=== PATIENT | female | born 1970 | race Caucasian/White ===

== ENCOUNTER 2018-04-06 07:17 | Inpatient (IN) | payer BC ==
[2018-04-06] MEDS ORDERED: NACL 0.9% 3 ML SYG IV (08:30)
[2018-04-06] MEDS ORDERED: ONDANSETRON 4 MG INJ IV (08:30)
[2018-04-06] MEDS ORDERED: VANCOMYCIN IV PER PHARMACY XX ×2 (09:30→12:00)
[2018-04-06] MEDS ORDERED: ACETAMINOPHEN 325 MG TAB PO (09:30)
[2018-04-06] MEDS: ENOXAPARIN 40 MG/0.4 ML SYG SC (09:30)
[2018-04-06] MEDS: LEVOFLOXACIN 500MG/D5W (PMX) 100 ML IVPB (09:30)
[2018-04-06] MEDS: SOD CHLORIDE 0.9% 1,000 ML IV ×2 (10:32→20:00)
[2018-04-06 10:55] LABS: ADD MAN DIFF? NO
[2018-04-06 10:59] LABS: BASOPHILS % 0.5 % (0.0-2.0); EOSINOPHILS # 0.2 10^3/ul (0.0-0.5); EOSINOPHILS % 1.8 % (0.0-7.0); HEMATOCRIT 35.8 % (37.0-47.0); LYMPHOCYTES # 1.4 10^3/ul (0.8-2.9); LYMPHOCYTES % 17.1 % (15.0-51.0); MEAN CORPUSCULAR HEMOGLOBIN 32.4 pg (29.0-33.0); MEAN CORPUSCULAR HGB CONC 33.5 g/dl (32.0-37.0); MEAN CORPUSCULAR VOLUME 96.8 fl (82.0-101.0); MEAN PLATELET VOLUME 11.9 fl (7.4-10.4); MONOCYTE # 0.8 10^3/ul (0.3-0.9); MONOCYTES % 10.2 % (0.0-11.0); NEUTROPHIL # 5.8 10^3/ul (1.6-7.5); NEUTROPHILS % 70.2 % (39.0-77.0); PLATELET COUNT 230 10^3/UL (140-415); RED CELL DISTRIBUTION WIDTH 12.7 % (11.5-14.5)
[2018-04-06 10:59] LABS: WHITE BLOOD COUNT 8.2 10^3/ul (4.8-10.8)
[2018-04-06 11:12] LABS: LACTIC ACID 0.7 mmol/L (0.5-2.0)
[2018-04-06 11:23] LABS: ALANINE AMINOTRANSFERASE 20 IU/L (13-69); ALBUMIN 3.7 g/dl (3.3-4.9); ALBUMIN/GLOBULIN RATIO 1.15; ALKALINE PHOSPHATASE 61 IU/L (42-121); ANION GAP 11 (8-16); ASPARTATE AMINO TRANSFERASE 27 IU/L (15-46); BILIRUBIN,INDIRECT 0.6 mg/dl (0-1.1); BILIRUBIN,TOTAL 0.6 mg/dl (0.2-1.3); BLOOD UREA NITROGEN 10 mg/dl (7-20); CALCIUM 8.6 mg/dl (8.4-10.2); CARBON DIOXIDE 28 mmol/L (21-31); CHLORIDE 106 mmol/L (97-110); CREATININE 0.43 mg/dl (0.44-1.00); GLUCOSE 101 mg/dl (70-220); MAGNESIUM 1.9 mg/dl (1.7-2.5); PHOSPHORUS 4.1 mg/dl (2.5-4.9); POTASSIUM 4.2 mmol/L (3.5-5.1); SODIUM 141 mmol/L (135-144); TOTAL PROTEIN 6.9 g/dl (6.1-8.1)
[2018-04-06 11:29] LABS: HEMOGLOBIN A1C 5.1 % (0-5.9)
[2018-04-06 11:36] LABS: ADD UMIC YES; UR ASCORBIC ACID NEGATIVE (NEGATIVE); UR BACTERIA FEW /HPF (NONE SEEN); UR BILIRUBIN (Dip) NEGATIVE (NEGATIVE); UR BLOOD (Dip) 1+ mg/dL (NEGATIVE); UR CLARITY SLIGHTLY CLOUDY (CLEAR); UR COLOR YELLOW (YELLOW); UR GLUCOSE (Dip) NEGATIVE (NEGATIVE); UR KETONES (Dip) NEGATIVE (NEGATIVE); UR LEUKOCYTE ESTERASE (Dip) NEGATIVE Leu/ul (NEGATIVE); UR NITRITE (Dip) NEGATIVE (NEGATIVE); UR RBC 1 /HPF (0-5); UR SPECIFIC GRAVITY (Dip) 1.013 (1.003-1.030); UR SQUAMOUS EPITHELIAL CELL FEW /HPF (FEW); UR TOTAL PROTEIN (Dip) NEGATIVE (NEGATIVE); UR UROBILINOGEN (Dip) NEGATIVE (NEGATIVE); UR WBC 2 /HPF (0-5)
[2018-04-06] MEDS: morphine 2 MG INJ IV (12:33)
[2018-04-06 13:01] LABS: AMPHETAMINE/METHAMPHETAMINE Negative (NEGATIVE)
[2018-04-06 13:18] LABS: BARBITURATES Negative (NEGATIVE); BENZODIAZEPINES Negative (NEGATIVE); CANNABINOIDS Negative (NEGATIVE); COCAINE Negative (NEGATIVE); OPIATES Negative (NEGATIVE)
[2018-04-06] MEDS: VANCOMYCIN 1.25 GM in SOD CHLORIDE 0.9% 250 ML IVPB (13:22)
[2018-04-06 14:36] LABS: FREE T4 (FREE THYROXINE) 0.94 ng/dl (0.64-1.79)
[2018-04-06] MEDS: SOD CHLORIDE 0.9% 100 ML (15:49)
[2018-04-06] MEDS: IOHEXOL 300MG/ML 150 ML BTL (15:51)
[2018-04-06 16:33] LABS: CREATINE KINASE 30 IU/L (23-200)
[2018-04-06] MEDS: HYDROCODONE/APAP (5/325) TAB PO (17:48)
[2018-04-07] MEDS: SOD CHLORIDE 0.9% 1,000 ML IV ×2 (00:25→06:00)
[2018-04-07] MEDS: HYDROCODONE/APAP (5/325) TAB PO ×2 (00:25→22:27)
[2018-04-07] MEDS: VANCOMYCIN 1 GM 250 ML IVPB ×2 (00:32→12:49)
[2018-04-07] MEDS: morphine 2 MG INJ IV ×2 (04:25→14:11)
[2018-04-07 06:21] LABS: ADD MAN DIFF? NO
[2018-04-07 06:42] LABS: BASOPHILS % 0.6 % (0.0-2.0); EOSINOPHILS # 0.2 10^3/ul (0.0-0.5); EOSINOPHILS % 2.6 % (0.0-7.0); HEMATOCRIT 32.8 % (37.0-47.0); HEMOGLOBIN 10.8 g/dl (12.0-16.0); LYMPHOCYTES % 29.4 % (15.0-51.0); MEAN CORPUSCULAR HEMOGLOBIN 32.5 pg (29.0-33.0); MEAN CORPUSCULAR HGB CONC 32.9 g/dl (32.0-37.0); MEAN CORPUSCULAR VOLUME 98.8 fl (82.0-101.0); MEAN PLATELET VOLUME 12.2 fl (7.4-10.4); MONOCYTE # 0.8 10^3/ul (0.3-0.9); MONOCYTES % 11.4 % (0.0-11.0); NEUTROPHIL # 3.8 10^3/ul (1.6-7.5); NEUTROPHILS % 55.7 % (39.0-77.0); PLATELET COUNT 212 10^3/UL (140-415); RED BLOOD COUNT 3.32 10^6/ul (4.20-5.40); RED CELL DISTRIBUTION WIDTH 12.8 % (11.5-14.5)
[2018-04-07 06:42] LABS: WHITE BLOOD COUNT 6.8 10^3/ul (4.8-10.8)
[2018-04-07 06:58] LABS: CHOL/HDL RATIO 2.3 RATIO; HDL CHOLESTEROL 52 mg/dl (34-88); LDL CHOLESTEROL,CALCULATED 59 mg/dl; TRIGLYCERIDES 59 mg/dl (0-149)
[2018-04-07 06:58] LABS: CHOLESTEROL 123 mg/dl (100-200)
[2018-04-07 07:04] LABS: ANION GAP 7 (8-16); BLOOD UREA NITROGEN 6 mg/dl (7-20); CALCIUM 8.3 mg/dl (8.4-10.2); CARBON DIOXIDE 31 mmol/L (21-31); CHLORIDE 110 mmol/L (97-110); CREATININE 0.44 mg/dl (0.44-1.00); GLUCOSE 99 mg/dl (70-220); PHOSPHORUS 3.6 mg/dl (2.5-4.9); POTASSIUM 4.8 mmol/L (3.5-5.1); SODIUM 143 mmol/L (135-144)
[2018-04-07] MEDS: ENOXAPARIN 40 MG/0.4 ML SYG SC (09:52)
[2018-04-07] MEDS ORDERED: morphine LIQ (10 MG/5 ML) CUP PO (16:00)
[2018-04-08 01:53] LABS: VANCOMYCIN,TROUGH < 5.0 ug/ml (10.0-20.0)
[2018-04-08] MEDS: VANCOMYCIN 1 GM 250 ML IVPB ×3 (01:57→17:21)
[2018-04-08] MEDS: ZOLPIDEM 5 MG TAB PO (02:46)
[2018-04-08 05:36] LABS: ADD MAN DIFF? NO
[2018-04-08 05:40] LABS: WHITE BLOOD COUNT 7.2 10^3/ul (4.8-10.8)
[2018-04-08 05:40] LABS: BASOPHILS % 0.6 % (0.0-2.0); EOSINOPHILS # 0.2 10^3/ul (0.0-0.5); EOSINOPHILS % 2.7 % (0.0-7.0); HEMATOCRIT 34.1 % (37.0-47.0); HEMOGLOBIN 11.3 g/dl (12.0-16.0); LYMPHOCYTES # 2.1 10^3/ul (0.8-2.9); LYMPHOCYTES % 28.6 % (15.0-51.0); MEAN CORPUSCULAR HEMOGLOBIN 32.8 pg (29.0-33.0); MEAN CORPUSCULAR HGB CONC 33.1 g/dl (32.0-37.0); MEAN CORPUSCULAR VOLUME 98.8 fl (82.0-101.0); MEAN PLATELET VOLUME 11.5 fl (7.4-10.4); MONOCYTE # 0.7 10^3/ul (0.3-0.9); MONOCYTES % 10.1 % (0.0-11.0); NEUTROPHIL # 4.1 10^3/ul (1.6-7.5); NEUTROPHILS % 57.7 % (39.0-77.0); PLATELET COUNT 231 10^3/UL (140-415); RED BLOOD COUNT 3.45 10^6/ul (4.20-5.40); RED CELL DISTRIBUTION WIDTH 12.6 % (11.5-14.5)
[2018-04-08 06:04] LABS: MAGNESIUM 2.1 mg/dl (1.7-2.5)
[2018-04-08 06:05] LABS: ANION GAP 10 (8-16); BLOOD UREA NITROGEN 7 mg/dl (7-20); CALCIUM 8.4 mg/dl (8.4-10.2); CARBON DIOXIDE 30 mmol/L (21-31); CHLORIDE 107 mmol/L (97-110); CREATININE 0.46 mg/dl (0.44-1.00); GLUCOSE 100 mg/dl (70-220); POTASSIUM 4.4 mmol/L (3.5-5.1); SODIUM 143 mmol/L (135-144)
[2018-04-08] MEDS: HYDROCODONE/APAP (5/325) TAB PO ×3 (09:03→22:40)
[2018-04-08] MEDS: ENOXAPARIN 40 MG/0.4 ML SYG SC (09:06)
[2018-04-09] MEDS: VANCOMYCIN 1 GM 250 ML IVPB ×2 (01:57→11:32)
[2018-04-09] MEDS: ENOXAPARIN 40 MG/0.4 ML SYG SC (09:16)
[2018-04-09 11:10] LABS: VANCOMYCIN,TROUGH 8.9 ug/ml (10.0-20.0)
[2018-04-09] MEDS: HYDROCODONE/APAP (5/325) TAB PO ×2 (14:25→23:36)
[2018-04-09] MEDS: VANCOMYCIN 1.25 GM in SOD CHLORIDE 0.9% 250 ML IVPB (17:44)
[2018-04-09] MEDS: DIPHENHYDRAMINE 50 MG INJ IV (17:47)
[2018-04-10] MEDS: VANCOMYCIN 1.25 GM in SOD CHLORIDE 0.9% 250 ML IVPB ×3 (02:16→17:29)
[2018-04-10] MEDS: DIPHENHYDRAMINE 50 MG INJ IV (02:41)
[2018-04-10] MEDS: ENOXAPARIN 40 MG/0.4 ML SYG SC (08:14)
[2018-04-10] MEDS: DOCUSATE SODIUM 100 MG CAP PO (15:15)
[2018-04-10] MEDS: HYDROCODONE/APAP (5/325) TAB PO ×2 (15:16→16:22)
[2018-04-11] MEDS: [UNRECOGNIZED DRUG - REMARK] XX (01:00)
[2018-04-11 01:25] LABS: VANCOMYCIN,TROUGH 12.1 ug/ml (10.0-20.0)
[2018-04-11] MEDS: VANCOMYCIN 1.25 GM in SOD CHLORIDE 0.9% 250 ML IVPB ×2 (01:46→09:05)
[2018-04-11] MEDS: DIPHENHYDRAMINE 50 MG INJ IV (02:08)
[2018-04-11 06:10] LABS: ADD MAN DIFF? NO; BASOPHILS % 0.6 % (0.0-2.0); EOSINOPHILS # 0.2 10^3/ul (0.0-0.5); EOSINOPHILS % 2.4 % (0.0-7.0); HEMATOCRIT 34.3 % (37.0-47.0); HEMOGLOBIN 11.3 g/dl (12.0-16.0); LYMPHOCYTES # 1.8 10^3/ul (0.8-2.9); MEAN CORPUSCULAR HEMOGLOBIN 32.8 pg (29.0-33.0); MEAN CORPUSCULAR HGB CONC 32.9 g/dl (32.0-37.0); MEAN CORPUSCULAR VOLUME 99.4 fl (82.0-101.0); MEAN PLATELET VOLUME 11.6 fl (7.4-10.4); MONOCYTE # 0.5 10^3/ul (0.3-0.9); MONOCYTES % 7.8 % (0.0-11.0); NEUTROPHIL # 4.2 10^3/ul (1.6-7.5); NEUTROPHILS % 62.1 % (39.0-77.0); PLATELET COUNT 275 10^3/UL (140-415); RED BLOOD COUNT 3.45 10^6/ul (4.20-5.40); RED CELL DISTRIBUTION WIDTH 12.2 % (11.5-14.5)
[2018-04-11 06:10] LABS: WHITE BLOOD COUNT 6.8 10^3/ul (4.8-10.8)
[2018-04-11 06:31] LABS: PHOSPHORUS 3.7 mg/dl (2.5-4.9)
[2018-04-11 06:31] LABS: MAGNESIUM 1.9 mg/dl (1.7-2.5)
[2018-04-11 06:37] LABS: ANION GAP 11 (8-16); BLOOD UREA NITROGEN 15 mg/dl (7-20); CALCIUM 8.8 mg/dl (8.4-10.2); CARBON DIOXIDE 29 mmol/L (21-31); CHLORIDE 106 mmol/L (97-110); GLUCOSE 107 mg/dl (70-220); POTASSIUM 4.5 mmol/L (3.5-5.1); SODIUM 141 mmol/L (135-144)
[2018-04-11] MEDS: ENOXAPARIN 40 MG/0.4 ML SYG SC (09:06)
== END 2018-04-11 13:00 | disposition home or self-care (01) | DRG 603 ==
LOC: MS2 07:17
DX: L03.317 Cellulitis of buttock (principal)
CPT/HCPCS: 72193; 80048; 80053; 80061; 80202; 80307; 81001; 82550; 82962; 83036; 83605; 83735; 84100; 84439; 84443; 84703; 85025; 85651; 86140; 87040; 87086